=== PATIENT | male | born 1945 | race Caucasian/White ===

== ENCOUNTER → 2017-06-08 | Outpatient (CLI) | payer OTHER ==
[~2017-06-08] MED LIST: ASPI81TA28 PO; ATOR80TA PO; FINA5TAB PO; GADAVIST IV PRN; LISI20TA3 PO; MULTTAB58 PO
--- NOTE | 2017-06-09 07:38 | DIAGNOSTIC IMAGING REPORT ---
PROSTATE MRI WITH AND WITHOUT CONTRAST CLINICAL HISTORY: Elevated PSA. TECHNIQUE: Multisequence, multiplanar MR imaging of the prostate was performed before and after the administration of intravenous contrast of 6.5 cc of Gadavist. Postcontrast imaging was performed utilizing dynamic enhancement. Additional postprocessing was performed on a separate [employer] workstation by the radiologist for 3-D volumetric segmentation of the prostate and contouring of region(s) of interest (NIKOLAI) for targeting. COMPARISON: None. FINDINGS: Prostate: The prostate measures 4.5 x 3.2 x 3.1 cm cm (DynaCAD prostate boundary segmentation volume 20.84 mL). Moderate changes of benign prostatic hyperplasia are noted with several well-circumscribed BPH nodules. Precontrast T1 weighted imaging demonstrates no evidence of intrinsic T1 hyperintensity to suggest hemorrhage. Suspicious lesion(s) described below: Lesion (DynaCAD NIKOLAI) 1: Note is made of a 1 x 0.6 x 0.9 cm subtle T2 hypointense focus within the right anterior aspect of the transitional zone at the level of the apex. This demonstrates restricted diffusion with moderately diminished signal on the ADC map. No additional suspicious findings are noted within the prostate gland. Bladder: Normal. Bowel: Visualized portion of the rectum normal. Peritoneum: No free fluid in the pelvis. Lymph nodes: No lymphadenopathy in the visualized portion of the pelvis. Vasculature: Iliac vessels patent. Abdominal wall: Normal. Osseous structures: Normal bone marrow signal intensity. 1. IMPRESSION: 1 x 0.6 x 0.9 cm T2 hypointense focus within the right anterior aspect of the transitional zone at the level of the apex which demonstrates restricted diffusion. Overall, the findings are subtle and this portion of the prostate is difficult to evaluate however the findings are suspicious for prostate cancer. This study is considered PI-RADS: 4. Clinically significant cancer is likely to be present. This lesion has been segmented for targeted biopsy. 2. Moderate benign prostatic hyperplasia. Electronically signed by: Minh Garza M.D. 06/09/2017 7:36 AM Dictated Date/Time: 06/08/2017 10:40 AM
== END | disposition home or self-care (01) ==
LOC: C.MRIBC 08:56
PROVIDERS: ATTEND Urology
DX: R97.20 Elevated prostate specific antigen [PSA] (principal); N40.0 Benign prostatic hyperplasia without lower urinary tract symptoms

== ENCOUNTER → 2017-07-21 | Outpatient (CLI) | payer OTHER ==
[~2017-07-21] MED LIST changes: -GADAVIST IV PRN
== END | disposition home or self-care (01) ==
LOC: C.PATHSPEC 17:50
PROVIDERS: ATTEND Urology
DX: R97.20 Elevated prostate specific antigen [PSA] (principal); C61 Malignant neoplasm of prostate; N42.31 Prostatic intraepithelial neoplasia

== ENCOUNTER → 2017-12-02 | Day surgery (SDC) | payer OTHER ==
[2017-11-18 14:49] VITALS: BMI 23.0
--- NOTE | 2017-11-22 15:42 | PAT Medication Instructions ---
Service Date Nov 22, 2017. Current Home Medication List Aspirin (Aspirin Ec), 162 MG PO HS Atorvastatin (Lipitor), 80 MG PO HS Brimonidine Tartrate-Timolol M (Combigan), 1 DROP OPB BID Dorzolamide Hcl-Timolol Maleat (Cosopt Oph), 1 DROPS OP BID Finasteride (Proscar), 5 MG PO HS Latanoprostene Bunod (Vyzulta), 1 DROP OPB DAILY Lisinopril (Prinivil), 20 MG PO HS Multiple Vitamin (Multivitamin), 1 TAB PO HS Medication Instructions For Your Scheduled Surgery -Instructions per surgeon: Aspirin (Aspirin Ec), 162 MG PO HS - Take the following medications the morning of surgery: Brimonidine Tartrate-Timolol M (Combigan), 1 DROP OPB BID Dorzolamide Hcl-Timolol Maleat (Cosopt Oph), 1 DROPS OP BID Latanoprostene Bunod (Vyzulta), 1 DROP OPB DAILY - Take the following medications as scheduled the night before surgery--THEN NOTHING TO EAT OR DRINK AFTER MIDNIGHT: Atorvastatin (Lipitor), 80 MG PO HS Brimonidine Tartrate-Timolol M (Combigan), 1 DROP OPB BID Dorzolamide Hcl-Timolol Maleat (Cosopt Oph), 1 DROPS OP BID Finasteride (Proscar), 5 MG PO HS Latanoprostene Bunod (Vyzulta), 1 DROP OPB DAILY Lisinopril (Prinivil), 20 MG PO HS Multiple Vitamin (Multivitamin), 1 TAB PO HS *BRING EYE DROPS WITH YOU TO THE HOSPITAL* If you have any questions please call us at [phone] or [phone] or [phone]
[2017-11-23 08:56] VITALS: BMI 24.0
--- NOTE | 2017-11-23 09:46 | DIAGNOSTIC IMAGING REPORT ---
CHEST 2 VIEWS ROUTINE CLINICAL HISTORY: pat preoperative evaluation COMPARISON STUDY: No previous studies for comparison. FINDINGS: The bones soft tissues and hemidiaphragms are normal. The cardiomediastinal silhouette is normal. The lungs are clear. The pulmonary vasculature is normal. IMPRESSION: Negative chest. The above report was generated using voice recognition software. It may contain grammatical, syntax or spelling errors. Electronically signed by: Alden Chen M.D. 11/23/2017 9:44 AM Dictated Date/Time: 11/23/2017 9:44 AM
[2017-11-23 10:19] LABS: BASO % 0.7 %; BASO ABS # 0.04 K/uL (0-0.2); EOS % 5.9 %; EOS ABS # 0.34 K/uL (0-0.5); HEMATOCRIT 41.2 % (42-52); HEMOGLOBIN 13.8 g/dL (14.0-18.0); IG# 0.01 K/uL (0.00-0.02); LYMPH % 23.4 %; LYMPH ABS # 1.34 K/uL (1.2-3.4); MEAN CELL VOLUME 91.2 fL (80-100); MEAN CORPUSCULAR HEMOGLOBIN 30.5 pg (25-34); MEAN CORPUSCULAR HGB CONC 33.5 g/dl (32-36); MEAN PLATELET VOLUME 11.5 fL (7.4-10.4); MONO % 11.4 %; MONO ABS # 0.65 K/uL (0.11-0.59); NEUT % 58.4 %; NEUT ABS # 3.34 K/uL (1.4-6.5); PLATELET COUNT 225 K/uL (130-400); RED CELL DISTRIBUTION WIDTH CV 13.3 % (11.5-14.5); WHITE BLOOD COUNT 5.72 K/uL (4.8-10.8)
[2017-11-23 10:30] LABS: CALCIUM 8.5 mg/dl (8.5-10.1); CREATININE 0.75 mg/dl (0.60-1.40); POTASSIUM 4.7 mmol/L (3.5-5.1)
[~2017-12-02] VITALS: Ht 175.3 cm; Wt 73.6 kg
[~2017-12-02] MED LIST changes: +ATROPINE SULFATE 0.1 MG/ML 5ML SYR IV PRN; +BACITRACIN OINT 15 GM TUBE ONE; +BRIM0.2S OPB; +CIPR1TAB11 PO; +CIPROFLOXACIN / D5W 400 MG IV SCH; +CONRAY 60% 50 ML VIAL ONE; +DEXAMETHASONE SOD INJ 4 MG/ML VIAL ONE; +DORZ2SOL20 OP; +EpHEDrine SULFATE 50MG/5ML SYR ONE; +FENTANYL CITRATE INJ 50 MCG/1 ML 2 ML VIAL ONE; +GENTAMICIN INJ 120 MG in DEXTROSE 5% 100ML 100 ML IV SCH; +GLYCOPYRROLATE INJ 0.2 MG/ML VIAL ONE; +KETOROLAC TROMETHAMINE 30 MG/ML VIAL IV. PRN; +LACTATED RINGER'S 1000ML 1,000 ML IV SCH; +LIDOCAINE 2% JELLY 5 ML TUBE ONE; +LIDOCAINE HCL 2% 2 ML VIAL (20MG/ML) ONE; +METH4PAK PO; +MIDAZOLAM HCL 1 MG/ML 2ML VIAL ONE; +MoRPHine SULFATE 10 MG/ML CARP/VIAL IV PRN; +NEOSTIGMINE METHYLSULFATE 5 MG/5 ML SYR ONE; +ONDANSETRON INJ 2 MG/ML 2 ML VIAL IV PRN; +ONDANSETRON INJ 2 MG/ML 2 ML VIAL ONE; +OXYCODONE/ACETAMINOPHEN 5-325 TAB PO PRN; +PHENAZOPYRIDINE HCL 200 MG TAB PO PRN; +PROPOFOL IV EMULSION 10 MG/ML 20 ML VIAL ONE; +ROCURONIUM BROMIDE 10 MG/ML 5 ML VIAL ONE; +TAMS0.4C38 PO; +[UNRECOGNIZED DRUG - CODE] OPB
[2017-12-02 05:42] VITALS: BP 125/65; PULSE 64; TEMP 36.6; O2SAT 99; Ht 175.3 cm; Wt 73.6 kg
--- NOTE | 2017-12-02 07:14 | History & Physical Bridge Note ---
H&P Re-Evaluation Bridge Note: I have examined the patient, reviewed the History & Physical and in the interval since the performance of the History & Physical I have noted the following changes of clinical significance: No changes noted
--- NOTE | 2017-12-02 09:42 | Discharge Instructions ---
Discharge Instructions Date of Service Dec 02, 2017. Admission Reason for Admission: Prostate Cancer, Malignant Neoplasm Of Prostate Discharge Discharge Diagnosis / Problem: Prostate cancer s/p brachytherapy of the prostate Discharge Goals Goal(s): Improve disease control, Therapeutic intervention Activity Recommendations Activity Limitations: as noted below Lifting Limitations: no more than 25 pounds, gradually increase as tolerated Exercise/Sports Limitations: rest today, gradually increase as tolerated May Resume Sexual Activity: after follow-up appointment Shower/Bathe: tomorrow (may shower, no tub bath x 1 week) . Instructions / Follow-Up Instructions / Follow-Up In office as scheduled for follow-up symptom check Current Hospital Diet Patient's current hospital diet: Discharge Diet Recommended Diet: Regular Diet (good fluid intake) Procedures Procedures Performed: Brachytherapy of the Prostate Pending Studies Studies pending at discharge: no Medical Emergencies . Who to Call and When: Medical Emergencies: If at any time you feel your situation is an emergency, please call 911 immediately. . Non-Emergent Contact Non-Emergency issues call your: Urologist Call Non-Emergent contact if: you have a fever, temperature is above 101, your pain is not controlled, your pain is worsening, your pain is unusual for you, your pain is concerning you, wound has increased drainage, wound has increased redness, wound has increased pain, you have any medication questions . . "Provider Documentation" section prepared by George Man. .
--- NOTE | 2017-12-02 09:48 | [facility] Operative Report ---
Operative Report Operative Date Dec 02, 2017. Pre-Operative Diagnosis Malignant Neoplasm of Prostate, [place] 4+3 Post-Operative Diagnosis Same Procedure(s) Performed Brachytherapy of the Prostate Surgeon Dr. George Man, Dr Henrique Higginbotham Child Protective Services Social Worker Surgeon(s) Yoav Pabon Estimated Blood Loss 10mL Findings 48 seeds implanted via 17 needles with excellent coverage of the prostate, volume of 18.7 cc. Specimens None Drains Silicone Gonzales to gravity drainage Anesthesia Type General Complication(s) none Disposition yes Recovery Room / PACU Indications Patient is a pleasant 72-year-old male diagnosis of [place] 4+3 adenocarcinoma the prostate. After consideration of various forms of intervention he is decided upon brachytherapy of the prostate in the context of for combination radiation therapy to manage his disease. Lupron has been deferred due to small prostate volume. Patient has followed his prep and intravenous antibiotics provided today. Please see H&P for further details. Description of Procedure Patient was properly identified and brought into the operative suite after identification for proper consent of the chart. General anesthesia with endotracheal intubation was initiated and patient was prepped and draped in standard fashion for this procedure. Full timeout procedure was followed. Gonzales catheter was placed with 10 cc of sterile water in balloon bladder was filled with Conray for fluoroscopic identification. Gonzales was filled with aerated gel for easier identification intraoperatively. Transrectal ultrasound probe was guided in place volumetric analysis of the prostate was performed. This demonstrated a prostate with central calcifications with a volume of 18.7 cc. After radiation oncology planning a peripheral needle pass was made of 12 needles which were then implanted according to plan. A central pass of 5 needles was performed in a second stage with a total of 48 seeds implanted. Seeds were monitored in real-time entering the prostate gland and mapped using radiation oncology software with excellent coverage. Seed placement was confirmed using fluoroscopic intraoperative imaging is necessary. Transrectal ultrasound probe was removed and perineal pressure held with bacitracin ointment. Anesthesia was reversed and patient was transferred to recovery room in stable condition. Follow-up instructions: Patient will be discharged home after trial of void in the radiation oncology department. Complete outpatient antibiotics and medications as planned. Outpatient appointment is confirmed. Patient is instructed to contact our service should he note any fevers, chills, nausea, vomiting or other difficulties in the postoperative period. I attest to the content of the Intraoperative Record and any orders documented therein. Any exceptions are noted below.
[2017-12-02 10:30] VITALS: BP 123/68; PULSE 70; TEMP 36.1; O2SAT 99
[2017-12-02 11:00] VITALS: BP 129/65; PULSE 72; TEMP 36.3; O2SAT 99
--- NOTE | 2017-12-02 11:23 | Anesthesiology Progress Note ---
Anesthesia Post Op Note Date & Time Dec 02, 2017 at 11:23 Vital Signs Pain Intensity: 2 Vital Signs Past 12 Hours Date Time Temp Pulse Resp B/P (MAP) Pulse Ox O2 Delivery O2 Flow Rate FiO2 12/02/17 11:00 36.3 72 18 129/65 99 Room Air 12/02/17 10:30 36.1 70 18 123/68 99 Room Air 12/02/17 10:15 36.4 57 16 118/69 99 Room Air 12/02/17 10:05 62 16 128/70 100 Oxymask 3 12/02/17 09:55 68 16 129/65 100 Oxymask 5 12/02/17 09:46 36.3 68 16 128/67 100 Oxymask 10 12/02/17 05:42 36.6 64 18 125/65 (85) 99 Room Air Notes Mental Status: alert / awake / arousable, participated in evaluation Pt Amnestic to Procedure: Yes Nausea / Vomiting: adequately controlled Pain: adequately controlled Airway Patency, RR, SpO2: stable & adequate BP & HR: stable & adequate Hydration State: stable & adequate Anesthetic Complications: no major complications apparent
--- NOTE | 2017-12-02 13:33 | DIAGNOSTIC IMAGING REPORT ---
PELVIS POST SEED IMPLANT CLINICAL HISTORY: BRACHYTHERAPY COMPARISON STUDY: Prostate MRI June 08, 2017. Fluoroscopy time: 3.9 seconds. FINDINGS: 1 fluoroscopic image was submitted for interpretation and demonstrates contrast within the bladder and brachytherapy seeds which project over the expected location of the prostate gland. IMPRESSION: Fluoroscopic image demonstrating expected findings following placement of brachytherapy seeds within the prostate gland. Electronically signed by: Minh Garza M.D. 12/02/2017 1:31 PM Dictated Date/Time: 12/02/2017 1:23 PM
== END | disposition home or self-care (01) ==
LOC: C.ACU 05:12
PROVIDERS: ATTEND Urology
DX: C61 Malignant neoplasm of prostate (principal); I10 Essential (primary) hypertension; E78.5 Hyperlipidemia, unspecified; Z85.038 Personal history of other malignant neoplasm of large intestine; Z87.891 Personal history of nicotine dependence; Z79.82 Long term (current) use of aspirin